=== PATIENT | female | born 1960 | race Caucasian/White ===

== ENCOUNTER 2016-09-13 09:31 | Emergency (ER) | payer OTHER ==
[2016-09-13 10:15] LABS: BASOPHIL 0.6 % (0-2); EOSINOPHIL 1.2 % (0-5); HCT 44.9 % (37.0-47.0); HGB 15.3 g/dl (12.5-16.0); LYMPHOCYTE 34.9 % (15-48); MCH 29.6 pg (25.0-31.0); MCHC 34.1 g/dL (32.0-36.0); MCV 86.8 fL (78.0-100.0); MONOCYTE 6.9 % (0-12); MPV 10.7 fL (6.0-9.5); NEUTROPHIL 56.4 % (41-80); PLT 221 K/uL (150-400); RBC 5.17 M/uL (4.20-5.40); RDW 14.1 % (11.5-14.0); WBC 6.7 K/uL (4.0-10.5)
[2016-09-13 10:38] LABS: ALBUMIN 4.5 g/dL (3.5-5.0); BILIRUBIN - TOTAL 0.8 mg/dL (0.1-1.0); CREATININE 0.7 mg/dL (0.5-1.0); GLOBULIN (CALCULATION) 3.2 g/dL (2.2-4.2); TOTAL PROTEIN 7.7 g/dL (6.4-8.3)
[2016-09-13 10:59] LABS: TOTAL T4 6.83 ug/dL (5.1-14.1); TSH (THYROID STIM HORMONE) 4.93 uIU/mL (0.270-4.200)
== END 2016-09-13 12:50 | disposition home or self-care (01) ==
LOC: FER 09:31
PROVIDERS: Internal Medicine
DX: I48.0 Paroxysmal atrial fibrillation (principal); K21.9 Gastro-esophageal reflux disease without esophagitis; F41.9 Anxiety disorder, unspecified; F32.9 Major depressive disorder, single episode, unspecified; Z88.2 Allergy status to sulfonamides; Z79.899 Other long term (current) drug therapy
CPT/HCPCS: 36415; 71010; 80053; 84436; 84443; 84484; 85025; 93005